=== PATIENT | male | born 1940 | race Native Hawaiian/Other Pacific Islander ===

== ENCOUNTER 2020-03-15 14:59 | Emergency (ER) | payer OTHER ==
[~2020-03-15] VITALS: Ht 170.2 cm; Wt 68.9 kg
[2020-03-15 14:59] VITALS: BP 132/52; TEMP 98
[2020-03-15 15:21] LABS: PLATELET COUNT 212 K/uL (142-355)
[2020-03-15 15:59] LABS: POTASSIUM 4.3 mmol/L (3.6-5.2)
[2020-03-15] MEDS ORDERED: MAGNSUS68 PO (17:50)
[2020-03-15] MEDS ORDERED: AMLODIPINE BESYLATE PO (17:54)
[2020-03-15] MEDS ORDERED: ASPIR-8181 MG PO (17:55)
[2020-03-15] MEDS ORDERED: LISI20TA11 PO (17:56)
[2020-03-15] MEDS ORDERED: KP FOLIC ACID1 MG PO (17:56)
[2020-03-15] MEDS ORDERED: TRICOR48 MG PO (17:56)
[2020-03-15] MEDS ORDERED: PANTOPRAZOLE 40MG TA PO (17:57)
[2020-03-15] MEDS ORDERED: SENNA8.6 MG PO (17:57)
[2020-03-15] MEDS ORDERED: FERROUS SULF325 M1 PO (17:58)
[2020-03-15] MEDS ORDERED: BENZ1TAB43 PO (17:58)
[2020-03-15] MEDS ORDERED: METO50TA27 PO (17:59)
[2020-03-15] MEDS ORDERED: MEMA10TA2 PO (17:59)
[2020-03-15] MEDS ORDERED: ARTIFICIAL TEAR1.4 % IO (18:00)
[2020-03-15] MEDS ORDERED: LIPITOR40 MG PO (18:01)
[2020-03-15] MEDS ORDERED: DONEPEZIL HYDRO10 MG PO (18:02)
[2020-03-15] MEDS ORDERED: [UNRECOGNIZED DRUG - CODE] PO (18:02)
[2020-03-15] MEDS ORDERED: ESCITALOPRAM10 MG PO (18:02)
[2020-03-15] MEDS ORDERED: HALO2CON2 PO (18:04)
[2020-03-15] MEDS ORDERED: TYLENOL325 MG PO (18:05)
[2020-03-15] MEDS ORDERED: BISACODYL5 M1 PO (18:05)
[2020-03-15] MEDS ORDERED: HYDR5TAB9 PO (18:06)
[2020-03-15] MEDS ORDERED: GERI-LANTA PO (18:06)
[2020-03-15] MEDS ORDERED: DIPH12.521 PO (18:07)
[2020-03-15] MEDS ORDERED: ROBITUSSIN7.5 MG/5 M PO (18:08)
[2020-03-17] MEDS ORDERED: RISP0.5T2 PO (16:21)
[2020-03-17] MEDS ORDERED: MEMA5TAB2 PO (16:25)
== END 2020-03-15 16:52 | disposition still patient (30) ==
LOC: ED 14:59
PROVIDERS: General Practice
DX: F03.91 Unspecified dementia, unspecified severity, with behavioral disturbance (principal); F32.89 Other specified depressive episodes; Z11.59 Encounter for screening for other viral diseases; Z04.6 Encounter for general psychiatric examination, requested by authority
CPT/HCPCS: 80053; 81000; 85027; 87635; 93005; 99283; U00003